=== PATIENT | male | born 1945 | race Two or more races ===

== ENCOUNTER 2020-12-26 19:26 | Inpatient (IN) | payer MEDICARE ==
[~2020-12-26] VITALS: Ht 167.6 cm; Wt 70.3 kg
--- NOTE | 2020-12-26 19:35 | NUR ---
PT C/O SOB FOR 2x HOURS WHILE IN CAR. TOOK INHALER W/ NO RELIEF. PT ALERT AND ORIENTED X3. AMBULATORY HAVING TROUBLE CATCHING BREATHING SATING AT 93% ON ROOM AIR.
[2020-12-26] MEDS ORDERED: ALBUTEROL FS 2.5 MG/3 ML VIAL.NEB NEB ONE (20:00)
[2020-12-26] MEDS ORDERED: IPRATROPIUM NEB FS 0.5 MG/2.5 ML AMPUL.NEB NEB ONE (20:00)
[2020-12-26] MEDS ORDERED: predniSONE 20 MG TABLET PO ONE (20:00)
[2020-12-26] MEDS ORDERED: predniSONE 20 MG TABLET ONE (20:08)
[2020-12-26 20:13] LABS: BASOPHILS # (AUTO) 0.3 K/uL (0.0-0.2); BASOPHILS % (AUTO) 2.2 % (0.0-2.0); EOSINOPHILS % (AUTO) 6.3 % (0.0-6.0); HEMATOCRIT 37 % (39-51); HEMOGLOBIN 10.7 g/dL (13.5-17.5); LYMPHOCYTES # (AUTO) 0.9 K/uL (0.8-4.8); LYMPHOCYTES % (AUTO) 7.4 % (20.0-44.0); MEAN CORPUSCULAR HGB CONC 29 g/dl (31.0-36.0); MEAN CORPUSCULAR VOLUME 73 fL (80-96); MONOCYTES # (AUTO) 0.7 K/uL (0.1-1.30); MONOCYTES % (AUTO) 5.3 % (2.0-12.0); NEUTROPHILS # (AUTO) 10.1 K/uL (1.8-8.9); NEUTROPHILS % (AUTO) 78.8 % (43.0-81.0); PLATELET COUNT (AUTO) 382 K/uL (150-450); RED BLOOD CELL COUNT(AUTO) 5.04 MIL/uL (4.5-6.0); WHITE BLOOD COUNT (AUTO) 12.8 K/uL (4.3-11.0)
[2020-12-26 20:22] LABS: CALCIUM, SERUM 9.1 mg/dL (8.5-10.1); CARBON DIOXIDE 24 mmol/L (21-32); CHLORIDE 106 mmol/L (98-107); CREATININE 1.4 mg/dL (0.6-1.3); GLUCOSE 106 mg/dL (74-106); POTASSIUM 4.5 mmol/L (3.5-5.1); SODIUM SERUM 141 mmol/L (136-145); UREA NITROGEN, BLOOD 32 mg/dL (7-18)
[2020-12-26] MEDS ORDERED: ALBUTEROL FS 2.5 MG/3 ML VIAL.NEB ONE (20:47)
[2020-12-26] MEDS ORDERED: IPRATROPIUM NEB FS 0.5 MG/2.5 ML AMPUL.NEB ONE (20:47)
--- NOTE | 2020-12-26 21:00 | NUR ---
RT @ BEDSIDE FOR BREATHING TREATMENT
--- NOTE | 2020-12-26 21:20 | NUR ---
COVID SWAB RAPID COLLECTED AND SENT TO THE LAB.
--- NOTE | 2020-12-26 21:20 | NUR ---
DR CHIANG ON THE PHONE W/ CONNOR DAWKINS, HOSPITALIST
--- NOTE | 2020-12-26 21:27 | NUR ---
son is at bedside speaking to md.
--- NOTE | 2020-12-26 21:29 | NUR ---
LARISSA SOTO ASKED TO CALL IN CASE OF EMERGENCY [phone]
[2020-12-26] MEDS ORDERED: ENOXAPARIN SODIUM 80 MG/0.8 ML DISP.SYRIN SQ ONE (21:30)
--- NOTE | 2020-12-26 21:47 | NUR ---
PT PLACED ON MONITOR AND LEFT COMFORTABLE ON BED.
[2020-12-26] MEDS ORDERED: CLONIDINE HCL 0.1 MG TABLET ONE (21:49)
[2020-12-26] MEDS ORDERED: ONDANSETRON HCL/PF 4 MG/2 ML VIAL IVP PRN (22:00)
[2020-12-26] MEDS ORDERED: IV NS 0.9% 1,000 ML IV PRN (22:00)
[2020-12-26] MEDS ORDERED: CLONIDINE HCL 0.1 MG TABLET PO ONE (22:00)
[2020-12-26] MEDS ORDERED: ACETAMINOPHEN 325 MG TABLET PO PRN (22:00)
--- NOTE | 2020-12-26 22:02 | NUR ---
CALL LIGHT AND URINAL GIVEN TO PATIENT.
[2020-12-26 22:08] LABS: IRON, SERUM 20 ug/dl (50-175); TOTAL IRON BINDING CAPACITY 473 ug/dl (250-450)
[2020-12-26 22:41] LABS: FERRITIN 15 ng/mL (8-388)
[2020-12-27] MEDS: IPRATROPIUM NEB FS 0.5 MG/2.5 ML AMPUL.NEB NEB SCH ×4 (00:18→19:59)
--- NOTE | 2020-12-27 00:26 | NUR ---
RT @ BEDSIDE FOR BREATHING TREATMENT
--- NOTE | 2020-12-27 03:20 | NUR ---
Room 314- Bed 2
--- NOTE | 2020-12-27 03:38 | NUR ---
report given to NOREEN Barnhart
--- NOTE | 2020-12-27 03:40 | NUR ---
PATIENT BEING TRANSFERRED TO [facility]-2 PER ACLS.
[2020-12-27 04:00] VITALS: BP 146/77
--- NOTE | 2020-12-27 04:00 | NUR ---
RN NOTES Received patient from ER with Dx of NSTEMI alert oriented x4, syriac/arabic speaking, denies pain, SR on tele monitor HR-93, not in distress O2 sat @ 3L saturating 98%, admission instructions provided, call light within reach, siderailsupx2, will continue to monitor
[2020-12-27 04:15] VITALS: BP 141/77
[2020-12-27] MEDS ORDERED: methylPREDNISolone SOD SUCC 40 MG/ML VIAL IV ONE (05:00)
--- NOTE | 2020-12-27 06:31 | NUR ---
RN NOTES Awake, denies pain, not in distress, morning care rendered, call light within reach, siderailsupx2, pt needs attended
[2020-12-27 07:28] LABS: BASOPHILS % (AUTO) 0.1 % (0.0-2.0); HEMATOCRIT 33 % (39-51); HEMOGLOBIN 9.9 g/dL (13.5-17.5); LYMPHOCYTES # (AUTO) 0.7 K/uL (0.8-4.8); MEAN CORPUSCULAR HGB CONC 30 g/dl (31.0-36.0); MEAN CORPUSCULAR VOLUME 72 fL (80-96); MONOCYTES # (AUTO) 0.1 K/uL (0.1-1.30); MONOCYTES % (AUTO) 0.7 % (2.0-12.0); NEUTROPHILS % (AUTO) 90.2 % (43.0-81.0); PLATELET COUNT (AUTO) 350 K/uL (150-450); RED BLOOD CELL COUNT(AUTO) 4.61 MIL/uL (4.5-6.0); WHITE BLOOD COUNT (AUTO) 7.8 K/uL (4.3-11.0)
--- NOTE | 2020-12-27 07:35 | NUR ---
RN OPENING NOTE- PT ALERT ORIENTED TO PERSON PLACE TIME PURPOSE. PT W O2 VIA NC SATURATION AT 97%, TOLERATING WELL. IVF INFUSING - NS AT 75/HR. CXR W PLEURAL EFFUSIONS PRESENT . WILL CONFER W MD REGARDING CONTINUED IVF. SIDE RAILS UP, BED LOCKED, CALL LIGHT CLOSE, DENIES PAIN. MONITOR/ ASSIST
[2020-12-27 08:00] VITALS: BP 139/67
[2020-12-27 08:13] LABS: CALCIUM, SERUM 8.7 mg/dL (8.5-10.1); CARBON DIOXIDE 23 mmol/L (21-32); CHLORIDE 105 mmol/L (98-107); CREATININE 1.4 mg/dL (0.6-1.3); GLUCOSE 164 mg/dL (74-106); MAGNESIUM 2.2 mg/dL (1.8-2.4); PHOSPHORUS 3.3 mg/dL (2.5-4.9); POTASSIUM 4.1 mmol/L (3.5-5.1); SODIUM SERUM 141 mmol/L (136-145); UREA NITROGEN, BLOOD 31 mg/dL (7-18)
[2020-12-27 08:14] LABS: CHOLESTEROL 199 mg/dL (<200); HDL CHOLESTEROL 59 mg/dL (40-60); LDL 129 mg/dL (0-99); TRIGLYCERIDES 62 mg/dL (30-150)
[2020-12-27] MEDS: ATORVASTATIN 40 MG TABLET PO SCH (08:59)
[2020-12-27] MEDS: ASPIRIN 81 MG TAB.CHEW PO SCH (09:00)
[2020-12-27] MEDS: METOPROLOL TARTRATE 25 MG TABLET PO SCH ×2 (09:00→21:12)
[2020-12-27] MEDS ORDERED: HEPARIN SODIUM, PORCINE 5000 UNITS/1 ML VIAL SQ SCH (09:00)
[2020-12-27] MEDS: ENOXAPARIN SODIUM 80 MG/0.8 ML DISP.SYRIN SQ SCH ×2 (09:01→21:13)
[2020-12-27] MEDS ORDERED: NITROGLYCERIN 0.4 MG/TAB BOTTLE SL ONE (10:30)
--- NOTE | 2020-12-27 10:30 | NUR ---
RN NOTE- PT FOR CT ANGIO PER DR MATTSON. CONSENT COMPLETED. PT SENT TO RADIOLOGY. COMPLETED AND RETURNED . AWAITING RESULTS
[2020-12-27] MEDS ORDERED: METOPROLOL TARTRATE INJ 5 MG/5 ML AMPUL ONE (10:31)
[2020-12-27] MEDS ORDERED: CT SWABBABLE VALVE TRANS SET 1 EA INFUS.SET MC ONE (10:31)
[2020-12-27] MEDS ORDERED: IOHEXOL-350 100 ML VIAL IV ONE (10:31)
[2020-12-27] MEDS ORDERED: IV NS 0.9% 250 ML IV ONE (10:32)
[2020-12-27] MEDS: METOPROLOL TARTRATE INJ 5 MG/5 ML AMPUL IVP PRN ×2 (10:37→10:42)
[2020-12-27] MEDS ORDERED: VERAPAMIL HCL IV 5 MG/2 ML VIAL ONE (10:53)
[2020-12-27] MEDS ORDERED: VERAPAMIL HCL IV 5 MG/2 ML VIAL IV PRN (11:00)
[2020-12-27 12:00] VITALS: BP 140/71
[2020-12-27] MEDS ORDERED: GUAI100S11 PO (13:07)
[2020-12-27] MEDS ORDERED: LOSA25TA27 PO (13:07)
[2020-12-27] MEDS ORDERED: ASPI-1420 PO (13:07)
[2020-12-27] MEDS ORDERED: ALBU8.5H8 IH (13:07)
[2020-12-27] MEDS: SOD FERRIC GLUC 125 MG in IV NS 0.9% 100 ML IV SCH (14:03)
[2020-12-27] MEDS ORDERED: ALBUTEROL FS 2.5 MG/0.5 ML VIAL.NEB IH PRN (14:30)
[2020-12-27] MEDS: methylPREDNISolone SOD SUCC 125 MG/2ML VIAL IV SCH ×2 (14:33→21:12)
[2020-12-27] MEDS: LEVOFLOXACIN 500 MG /D5W 100ML 500 MG in PREMIX 1 EA IV SCH (15:13)
[2020-12-27 16:00] VITALS: BP 145/70
--- NOTE | 2020-12-27 16:00 | NUR ---
RN NOTE- UA COLLECTED FOR US CREATININE, AND UA NA
--- NOTE | 2020-12-27 18:36 | NUR ---
RN CLOSING NOTE- PT ALERT ORIENTED TO PERSON PLACE TIME PURPOSE. PT W O2 VIA NC SATURATION AT 97%, TOLERATING WELL. SIDE RAILS UP, BED LOCKED, CALL LIGHT CLOSE, DENIES PAIN. MONITOR/ ASSIST
--- NOTE | 2020-12-27 19:30 | NUR ---
RN OPENING NOTE PATIENT SITTING AT THE EDGE OF THE BED, PATIENT IS A/O X 3. CURRENTLY ON 3 LPM O2 SUPPLEMENT, TOLERATION WELL, PATIENT DOES NOT REPORT DYSPNEA AT THIS TIME. MILD COUGHING PRESENT. PATIENT HAS A RAC 18 G, PATENT AND INTACT, SALINE LOCKED. PATIENT DOES NOT REPORT ANY PAIN AT THIS TIME. SAFETY MEASURES IN PLACE: BED LOCKED AND IN LOWEST POSITION, CALL LIGHT WITHIN REACH, SIDE RAILS UP. WILL MONITOR PATIENT CLOSELY.
[2020-12-27 19:47] LABS: BILIRUBIN,URINE NEGATIVE (NEGATIVE); COLOR,URINE YELLOW (YELLOW); LEUKOCYTE ESTERASE ,URINE NEGATIVE (NEGATIVE); NITRITE, URINE NEGATIVE (NEGATIVE); PH,URINE 5.5 (5.0-8.0); PROTEIN,URINE NEGATIVE (NEGATIVE); UGLUCOSE 100 MG/DL mg/dL (NEGATIVE); UROBILINOGEN,URINE 0.2 EU/dL (0.2)
[2020-12-27 19:54] LABS: CREATININE, URINE 94.6 MG/DL (30.0-125.0)
[2020-12-27 20:00] VITALS: BP 139/64
[2020-12-27 20:00] LABS: BACTERIA,URINE None seen /HPF (None Seen); RBC,URINE 0-2 /HPF (0-2); SQUAMOUS EPITHELIAL CELL,UR 0-2 /HPF (None Seen); WBC,URINE 0-2 /HPF (0-3)
[2020-12-28] VITALS: BP 133/70
[2020-12-28] MEDS: IPRATROPIUM NEB FS 0.5 MG/2.5 ML AMPUL.NEB NEB SCH ×4 (01:55→19:44)
[2020-12-28 04:00] VITALS: BP 138/72
[2020-12-28] MEDS: methylPREDNISolone SOD SUCC 125 MG/2ML VIAL IV SCH ×3 (04:07→20:41)
--- NOTE | 2020-12-28 06:51 | NUR ---
RN CLOSING NOTE PATIENT IN BED AWAKE, PATIENT IS A/O X 3. CURRENTLY ON 3 LPM O2 SUPPLEMENT, TOLERATING WELL, PATIENT REPORTS OCCASIONAL DYSPNEA. STATES THAT BREATHING TREATMENT AND SITTING UP HELPS. MILD COUGHING PRESENT. DOES NOT HAVE ANY PAIN AT THIS TIME. PATIENT HAS A RAC 18 G, PATENT AND INTACT, SALINE LOCKED. TELE MONITOR READS SR 75 BPM. SAFETY MEASURES IMPLEMENTED. ALL NEEDS MET AND ATTENDED. ALL ORDERS CARRIED OUT. WILL ENDORSE TO DAY SHIFT NURSE FOR NELLY.
--- NOTE | 2020-12-28 07:38 | NUR ---
RN OPENING NOTE PT AWAKE IN BED RESTING. ON 3L NC WITH SOB PRESENT, NO RESPIRATORY DISTRESS. MD AWARE. A/O X4 AND [place] SPEAKING. ON DAY HAUL OR FARM CHARTER BUS DRIVER. NO EDEMA PRESENT. SELF AMBULATORY WITH BATHROOM PRIVILEGES. URINAL AT BEDSIDE. NO SKIN BREAKDOWN PRESENT. IV PRESENT ON R AC 18 AND FLUSHES WELL. SALINE LOCKED. LABS AND ORDERS REVIEWED. SAFETY MEASURES IN PLACE. SIDE RAILS RAISED. BED LOWERED. CALL LIGHT WITHIN REACH. WILL CONTINUE TO MONITOR.
[2020-12-28 07:41] LABS: BASOPHILS % (AUTO) 0.1 % (0.0-2.0); HEMATOCRIT 31 % (39-51); HEMOGLOBIN 9.1 g/dL (13.5-17.5); LYMPHOCYTES # (AUTO) 0.9 K/uL (0.8-4.8); LYMPHOCYTES % (AUTO) 3.9 % (20.0-44.0); MEAN CORPUSCULAR HGB CONC 29 g/dl (31.0-36.0); MEAN CORPUSCULAR VOLUME 73 fL (80-96); MONOCYTES # (AUTO) 0.4 K/uL (0.1-1.30); MONOCYTES % (AUTO) 1.7 % (2.0-12.0); NEUTROPHILS # (AUTO) 21.7 K/uL (1.8-8.9); NEUTROPHILS % (AUTO) 94.3 % (43.0-81.0); PLATELET COUNT (AUTO) 346 K/uL (150-450); RED BLOOD CELL COUNT(AUTO) 4.26 MIL/uL (4.5-6.0)
[2020-12-28 08:00] VITALS: BP 134/64
[2020-12-28 08:12] LABS: ALANINE AMINOTRANSFERASE 25 U/L (12-78); ALBUMIN 3.7 g/dL (3.4-5.0); ALKALINE PHOSPHATASE 93 U/L (46-116); ASPARTATE AMINOTRANSFERASE 19 U/L (15-37); BILIRUBIN,TOTAL 0.2 mg/dL (0.2-1.0); CALCIUM, SERUM 8.5 mg/dL (8.5-10.1); CARBON DIOXIDE 24 mmol/L (21-32); CHLORIDE 107 mmol/L (98-107); CREATININE 1.4 mg/dL (0.6-1.3); GLUCOSE 146 mg/dL (74-106); MAGNESIUM 2.5 mg/dL (1.8-2.4); PHOSPHORUS 3.9 mg/dL (2.5-4.9); POTASSIUM 4.5 mmol/L (3.5-5.1); SODIUM SERUM 139 mmol/L (136-145); TOTAL PROTEIN, SERUM 7.9 g/dL (6.4-8.2); UREA NITROGEN, BLOOD 39 mg/dL (7-18)
[2020-12-28] MEDS: ATORVASTATIN 40 MG TABLET PO SCH (08:44)
[2020-12-28] MEDS: VALSARTAN 80 MG TABLET PO SCH (08:44)
[2020-12-28] MEDS: METOPROLOL TARTRATE 25 MG TABLET PO SCH ×2 (08:44→20:41)
[2020-12-28] MEDS: ASPIRIN 81 MG TAB.CHEW PO SCH (08:44)
[2020-12-28] MEDS: ENOXAPARIN SODIUM 40 MG/0.4 ML DISP.SYRIN SQ SCH (08:59)
[2020-12-28] MEDS ORDERED: GUAIFENESIN/CODEINE 10 ML UDC PO PRN (09:00)
[2020-12-28] MEDS: GUAIFENESIN/D-METHORPHAN HB 5 ML UDC PO PRN ×3 (11:10→22:43)
--- NOTE | 2020-12-28 11:15 | NUR ---
RN NOTE' PT REQUESTING FOR ALBUTEROL, MED UNAVAILABLE PER PHARMACY. [facility] OFFERED PRN MED. PT ACCEPTED. NOTIFIED.
[2020-12-28] MEDS ORDERED: ALBUTEROL HALF STRENGTH 1.25 MG/3 ML VIAL.NEB NEB PRN (11:30)
[2020-12-28] MEDS: PANTOPRAZOLE 40 MG TABLET.DR PO SCH (12:50)
[2020-12-28 13:25] LABS: BAND % (MANUAL) 1 % (0.0-5.0); LYMPHOCYTES % (MANUAL) 3 % (16-48); MONOCYTES % (MANUAL) 2 % (0-11.0); NEUTROPHILS % (MANUAL) 94 (42-76)
[2020-12-28] MEDS ORDERED: IPRATROPIUM NEB FS 0.5 MG/2.5 ML AMPUL.NEB NEB SCH (13:30)
[2020-12-28] MEDS: ALBUTEROL HALF STRENGTH 1.25 MG/3 ML VIAL.NEB NEB SCH ×2 (13:50→19:44)
[2020-12-28] MEDS: SOD FERRIC GLUC 125 MG in IV NS 0.9% 100 ML IV SCH (16:01)
[2020-12-28] MEDS: LEVOFLOXACIN 500 MG /D5W 100ML 500 MG in PREMIX 1 EA IV SCH (17:04)
--- NOTE | 2020-12-28 18:27 | NUR ---
RN OPENING NOTE PT AWAKE IN BED RESTING. ON 3L NC WITH SOB PRESENT, NO RESPIRATORY DISTRESS. MD AWARE. A/O X4 AND ALBANIAN SPEAKING. NO BUSINESS INVESTOR PRESENT. NO EDEMA PRESENT. SELF AMBULATORY WITH BATHROOM PRIVILEGES. URINAL AT BEDSIDE. NO SKIN BREAKDOWN PRESENT. IV PRESENT ON R AC 18 AND FLUSHES WELL. SALINE LOCKED. LABS AND ORDERS REVIEWED. SAFETY MEASURES IN PLACE. SIDE RAILS RAISED. BED LOWERED. CALL LIGHT WITHIN REACH. WILL GIVE REPORT TO NIGHT NURSE FOR NELLY.
--- NOTE | 2020-12-28 19:18 | NUR ---
RN OPENING NOTES PT AWAKE IN BED RESTING. ON 3L NC WITH SOB PRESENT, NO RESPIRATORY DISTRESS. A/O X4 AND PRYDEINIG/ CYPRIOT SPEAKING. NO ANDROID IOS DEVELOPER PRESENT. NO EDEMA PRESENT. SELF AMBULATORY WITH BATHROOM PRIVILEGES. URINAL AT BEDSIDE. NO SKIN BREAKDOWN PRESENT. IV PRESENT ON R AC 18 AND FLUSHES WELL. SALINE LOCKED. SAFETY MEASURES IN PLACE. SIDE RAILS RAISED. BED LOWERED. CALL LIGHT WITHIN REACH. SON AT BEDSIDE AT THIS TIME. WILL CONTINUE TO MONITOR.
[2020-12-28 20:00] VITALS: BP 138/62
[2020-12-28] MEDS ORDERED: IV NS 0.9% 1,000 ML IV ONE (21:30)
[2020-12-29] MEDS: ALBUTEROL HALF STRENGTH 1.25 MG/3 ML VIAL.NEB NEB SCH ×4 (01:21→19:54)
[2020-12-29] MEDS: IPRATROPIUM NEB FS 0.5 MG/2.5 ML AMPUL.NEB NEB SCH ×4 (01:22→19:54)
[2020-12-29] MEDS: methylPREDNISolone SOD SUCC 125 MG/2ML VIAL IV SCH ×2 (04:32→12:13)
[2020-12-29 06:33] LABS: HEMATOCRIT 29 % (39-51); HEMOGLOBIN 8.7 g/dL (13.5-17.5); LYMPHOCYTES # (AUTO) 0.5 K/uL (0.8-4.8); LYMPHOCYTES % (AUTO) 2.6 % (20.0-44.0); MEAN CORPUSCULAR HGB CONC 30 g/dl (31.0-36.0); MEAN CORPUSCULAR VOLUME 73 fL (80-96); MONOCYTES # (AUTO) 0.3 K/uL (0.1-1.30); MONOCYTES % (AUTO) 1.6 % (2.0-12.0); NEUTROPHILS # (AUTO) 19.6 K/uL (1.8-8.9); NEUTROPHILS % (AUTO) 95.8 % (43.0-81.0); PLATELET COUNT (AUTO) 308 K/uL (150-450); RED BLOOD CELL COUNT(AUTO) 4.03 MIL/uL (4.5-6.0); WHITE BLOOD COUNT (AUTO) 20.5 K/uL (4.3-11.0)
--- NOTE | 2020-12-29 06:53 | NUR ---
RN NOTES PT AWAKE IN BED RESTING. ON 3L NC WITH SOB PRESENT, NO RESPIRATORY DISTRESS. A/O X4 AND SUDANESE/ ARMENIAN SPEAKING. NO TEACHING ARTIST PRESENT. NO EDEMA PRESENT. SELF AMBULATORY WITH BATHROOM PRIVILEGES. URINAL AT BEDSIDE. NO SKIN BREAKDOWN PRESENT. IV PRESENT ON R AC 20 AND FLUSHES WELL RUNNING NS @ 75ML/HR. SAFETY MEASURES IN PLACE. SIDE RAILS RAISED. BED LOWERED. CALL LIGHT WITHIN REACH. WILL ENDORSE TO DAY SHIFT.
[2020-12-29 06:54] LABS: CALCIUM, SERUM 8.1 mg/dL (8.5-10.1); CARBON DIOXIDE 21 mmol/L (21-32); CHLORIDE 108 mmol/L (98-107); CREATININE 1.5 mg/dL (0.6-1.3); GLUCOSE 147 mg/dL (74-106); MAGNESIUM 2.6 mg/dL (1.8-2.4); POTASSIUM 4.8 mmol/L (3.5-5.1); SODIUM SERUM 139 mmol/L (136-145); UREA NITROGEN, BLOOD 43 mg/dL (7-18)
--- NOTE | 2020-12-29 07:30 | NUR ---
MS RN OPENING NOTES RECEIVED PT AWAKE ON BED AND A/O X4. ON O2 AT 3LPM VIA NASAL CANNULA, TOLERATING WELL. NO SOB NOTED. NOT IN DISTRESS. NO CONTROL CLERK HEAD PRESENT. NO EDEMA PRESENT. WITH IV IV ACCESS AT RIGHT AC G18, SALINE LOCKED, PATENT AND INTACT. SAFETY MEASURES IN PLACE. CALL LIGHT WITHIN REACH. BED ON LOWEST AND LOCKED POSITION, SIDE RAILS UP X2. WILL CONTINUE TO MONITOR.
[2020-12-29 08:00] VITALS: BP 122/68
[2020-12-29] MEDS: ATORVASTATIN 40 MG TABLET PO SCH (08:31)
[2020-12-29] MEDS: GUAIFENESIN/D-METHORPHAN HB 5 ML UDC PO PRN ×2 (08:31→17:05)
[2020-12-29] MEDS: ASPIRIN 81 MG TAB.CHEW PO SCH (08:31)
[2020-12-29] MEDS: VALSARTAN 80 MG TABLET PO SCH (08:32)
[2020-12-29] MEDS: PANTOPRAZOLE 40 MG TABLET.DR PO SCH ×2 (08:32→17:02)
[2020-12-29] MEDS: METOPROLOL TARTRATE 25 MG TABLET PO SCH ×2 (08:33→20:53)
[2020-12-29] MEDS: ENOXAPARIN SODIUM 40 MG/0.4 ML DISP.SYRIN SQ SCH (08:38)
[2020-12-29] MEDS: SOD FERRIC GLUC 125 MG in IV NS 0.9% 100 ML IV SCH (13:57)
[2020-12-29] MEDS: LEVOFLOXACIN (250MG) 250 MG TABLET PO SCH (15:05)
[2020-12-29 16:00] VITALS: BP 134/67
--- NOTE | 2020-12-29 18:25 | NUR ---
MS RN CLOSING NOTES PT RESTING ON BED AND A/O X4. ON ROOM AIR TOLERATING WELL. NO SOB NOTED. NOT IN DISTRESS. WITH NO COMPLAINTS OF PAIN AT THIS TIME. WITH IV ACCESS AT RIGHT HAND G22, SALINE LOCKED, PATENT AND INTACT. SAFETY MEASURES IN PLACE. CALL LIGHT WITHIN REACH. BED ON LOWEST AND LOCKED POSITION, SIDE RAILS UP X2. WILL ENDORSE TO NEXT SHIFT FOR NELLY.
--- NOTE | 2020-12-29 19:00 | NUR ---
RECEIVED PATIENT SITTING ON THE EDGE OF THE BED ALERT AND ORIENTATED X4 SMILING VERBALIZING HIS NEEDS NO CHESTPAIN NO NOTED SOB
[2020-12-29 20:00] VITALS: BP 138/65
[2020-12-30] MEDS: ALBUTEROL HALF STRENGTH 1.25 MG/3 ML VIAL.NEB NEB SCH ×3 (01:42→12:55)
[2020-12-30] MEDS: IPRATROPIUM NEB FS 0.5 MG/2.5 ML AMPUL.NEB NEB SCH ×3 (01:42→12:55)
--- NOTE | 2020-12-30 04:58 | NUR ---
CLLOSING NOTES ; RESP TX EFFECTIVE SLEPT THUR THE NIGHT NO SOB ROOM AIR A GOD NIGHT
--- NOTE | 2020-12-30 07:25 | NUR ---
pt. is awake and alert received on room air with saturation of 95%, no sob noted. Addendum: 12/30/20 at 0726 by SYLWIA GRANT RT Amended: Links added.
--- NOTE | 2020-12-30 07:37 | NUR ---
RN OPENING NOTE RECEIVED PATIENT IN BED. A/O X4. VERBALIZING SOB, PLACED ON 02 AT 2 LPM VIA FOR SUPPORT. IN NO APPARENT DISTRESS. DENIES ANY PAIN AT THIS TIME. IV ACCESS ON R HAND #20 G, INTACT AND PATENT. SAFETY MEASURES MAINTAINED. BED IN LOWEST POSITION, BRAKES LOCKED. SIDE RAILS UP X2. CALL LIGHT WITHIN REACH. WILL CONTINUE PLAN OF CARE.
[2020-12-30 07:44] LABS: BASOPHILS % (AUTO) 0.1 % (0.0-2.0); HEMATOCRIT 28 % (39-51); HEMOGLOBIN 8.5 g/dL (13.5-17.5); LYMPHOCYTES % (AUTO) 5.9 % (20.0-44.0); MEAN CORPUSCULAR HGB CONC 30 g/dl (31.0-36.0); MEAN CORPUSCULAR VOLUME 72 fL (80-96); MONOCYTES # (AUTO) 1.2 K/uL (0.1-1.30); MONOCYTES % (AUTO) 6.7 % (2.0-12.0); NEUTROPHILS # (AUTO) 15.4 K/uL (1.8-8.9); NEUTROPHILS % (AUTO) 87.3 % (43.0-81.0); PLATELET COUNT (AUTO) 290 K/uL (150-450); RED BLOOD CELL COUNT(AUTO) 3.91 MIL/uL (4.5-6.0); WHITE BLOOD COUNT (AUTO) 17.7 K/uL (4.3-11.0)
[2020-12-30 08:00] VITALS: BP 145/81
[2020-12-30 08:08] LABS: CALCIUM, SERUM 8.1 mg/dL (8.5-10.1); CARBON DIOXIDE 24 mmol/L (21-32); CHLORIDE 109 mmol/L (98-107); CREATININE 1.4 mg/dL (0.6-1.3); GLUCOSE 111 mg/dL (74-106); POTASSIUM 4.5 mmol/L (3.5-5.1); SODIUM SERUM 140 mmol/L (136-145); UREA NITROGEN, BLOOD 37 mg/dL (7-18)
[2020-12-30] MEDS: PANTOPRAZOLE 40 MG TABLET.DR PO SCH ×2 (08:25→16:03)
[2020-12-30] MEDS: GUAIFENESIN/D-METHORPHAN HB 5 ML UDC PO PRN (08:25)
[2020-12-30] MEDS: ATORVASTATIN 40 MG TABLET PO SCH (08:26)
[2020-12-30] MEDS: METOPROLOL TARTRATE 25 MG TABLET PO SCH (08:26)
[2020-12-30] MEDS: ASPIRIN 81 MG TAB.CHEW PO SCH (08:26)
[2020-12-30] MEDS: VALSARTAN 80 MG TABLET PO SCH (08:26)
[2020-12-30] MEDS: methylPREDNISolone SOD SUCC 40 MG/ML VIAL IV SCH ×2 (08:27→16:03)
[2020-12-30] MEDS: ENOXAPARIN SODIUM 40 MG/0.4 ML DISP.SYRIN SQ SCH (08:30)
[2020-12-30] MEDS: SOD FERRIC GLUC 125 MG in IV NS 0.9% 100 ML IV SCH (14:15)
[2020-12-30] MEDS ORDERED: BUDE10.2 INH (14:52)
[2020-12-30] MEDS ORDERED: Valsartan 80MG PO (14:58)
[2020-12-30] MEDS ORDERED: METO25TA20 PO (14:58)
[2020-12-30] MEDS ORDERED: PANT40TA2 PO (14:58)
[2020-12-30] MEDS ORDERED: METH4TAB17 PO (14:58)
[2020-12-30] MEDS ORDERED: Levofloxacin (250MG) PO (14:58)
[2020-12-30] MEDS ORDERED: ATOR40TA PO (14:58)
[2020-12-30] MEDS ORDERED: ASPI-1169 PO (14:58)
[2020-12-30 16:00] VITALS: BP 177/72
[2020-12-30] MEDS: LEVOFLOXACIN (250MG) 250 MG TABLET PO SCH (16:03)
--- NOTE | 2020-12-30 18:00 | NUR ---
DISCHARGE NOTE PATIENT WAS DISCHARGED TO HOME. WHEELED DOWN BY MARTA PLATT. HEALTH TEACHING AND DISCHARGE INSTRUCTIONS GIVEN. PT VERBALIZED UNDERSTANDING. REFUSED PHOTO DOCUMENTATION. REMOVED IV ACCESS AND ID [id number]. ALL FORMS SIGNED.
== END 2020-12-30 18:00 | disposition home or self-care (01) | DRG 189 ==
LOC: ER 19:26 → TELE 12-27 03:24 → MED 12-28 09:47
PROVIDERS: ADMIT Nurse Practitioner Acute Care; ATTEND Nurse Practitioner Acute Care
DX: J96.01 Acute respiratory failure with hypoxia (principal); I21.A1 Myocardial infarction type 2; N17.0 Acute kidney failure with tubular necrosis; J44.1 Chronic obstructive pulmonary disease with (acute) exacerbation; I16.0 Hypertensive urgency; Z20.822 Contact with and (suspected) exposure to COVID-19; I70.0 Atherosclerosis of aorta; Z98.890 Other specified postprocedural states; D50.9 Iron deficiency anemia, unspecified; D72.829 Elevated white blood cell count, unspecified; Z87.891 Personal history of nicotine dependence; I12.9 Hypertensive chronic kidney disease with stage 1 through stage 4 chronic kidney disease, or unspecified chronic kidney disease; N18.9 Chronic kidney disease, unspecified; K44.9 Diaphragmatic hernia without obstruction or gangrene
CPT/HCPCS: 36415; 71045-TC; 75574; 76770-TC; 80048-TC; 80053-TC; 80061-TC; 81001; 82378; 82570-TC; 82728-TC; 83540-TC; 83735-TC; 83880; 84100-TC; 84300-TC; 84484-TC; 85025-TC; 87081-TC; 93307-TC; 94799-TC; A4216; C9803; G0378; J1650; J1956; J2405; J2916; J2920; J2930; J3490; J7030; J7050; Q9967

== ENCOUNTER 2022-04-02 19:16 | Inpatient (IN) | payer MEDICARE ==
[~2022-04-02] VITALS: Ht 167.6 cm; Wt 83.9 kg
[~2022-04-02 19:16] MED LIST: ALBU8.5H8 IH; ASPI-1169 PO; ASPI-1420 PO; ATOR40TA PO; BUDE10.2 INH; GUAI100S11 PO; LOSA25TA27 PO; Levofloxacin (250MG) PO; METH4TAB17 PO; METO25TA20 PO; PANT40TA2 PO; Valsartan 80MG PO
--- NOTE | 2022-04-02 19:33 | NUR ---
BIBSELF FROM HOME C/O CP UPON EXERTION. -N/V -DIZZINESS. PT A/OX4. TOLERATING R/A WELL WITH NO SOB. CHANGED IN GOWN. CONNECTED PT TO POX AND MONITOR. SAFETY MEASURES IN PLACE.
--- NOTE | 2022-04-02 19:36 | NUR ---
EMT AT PT'S BEDSIDE
--- NOTE | 2022-04-02 19:56 | NUR ---
CEMENT [facility] [employer] AT BEDSIDE
[2022-04-02 20:22] LABS: BASOPHILS # (AUTO) 0.1 K/uL (0.0-0.2); BASOPHILS % (AUTO) 1.4 % (0.0-2.0); EOSINOPHILS % (AUTO) 2.3 % (0.0-6.0); LYMPHOCYTES # (AUTO) 1.8 K/uL (0.8-4.8); LYMPHOCYTES % (AUTO) 23.7 % (20.0-44.0); MEAN CORPUSCULAR HGB CONC 27 g/dl (31.0-36.0); MEAN CORPUSCULAR VOLUME 59 fL (80-96); MONOCYTES # (AUTO) 0.9 K/uL (0.1-1.30); MONOCYTES % (AUTO) 12.4 % (2.0-12.0); NEUTROPHILS # (AUTO) 4.5 K/uL (1.8-8.9); NEUTROPHILS % (AUTO) 60.2 % (43.0-81.0); PLATELET COUNT (AUTO) 291 K/uL (150-450); WHITE BLOOD COUNT (AUTO) 7.5 K/uL (4.3-11.0)
[2022-04-02 20:35] LABS: HEMATOCRIT 19 % (39-51)
--- NOTE | 2022-04-02 20:35 | NUR ---
CRITICAL LABS HGB 5.0 HCT 19
[2022-04-02 20:37] LABS: CALCIUM, SERUM 8.2 mg/dL (8.5-10.1); CARBON DIOXIDE 24 mmol/L (21-32); CHLORIDE 109 mmol/L (98-107); CREATININE 1.2 mg/dL (0.6-1.3); GLUCOSE 114 mg/dL (74-106); POTASSIUM 3.6 mmol/L (3.5-5.1); SODIUM SERUM 143 mmol/L (136-145); UREA NITROGEN, BLOOD 18 mg/dL (7-18)
--- NOTE | 2022-04-02 20:45 | NUR ---
ACETONE BUTTON PASTER AT PT'S BEDSIDE
--- NOTE | 2022-04-02 20:47 | NUR ---
COVID ANTIGEN SWAB COLLECTED AND SENT TO LAB
--- NOTE | 2022-04-02 20:49 | NUR ---
CRITICAL LAB TROPONIN 963
[2022-04-02 20:53] LABS: ALANINE AMINOTRANSFERASE 14 U/L (12-78); ALBUMIN 3.5 g/dL (3.4-5.0); ALKALINE PHOSPHATASE 85 U/L (46-116); ASPARTATE AMINOTRANSFERASE 13 U/L (15-37); BILIRUBIN,DIRECT 0.1 mg/dL (0.0-0.2); BILIRUBIN,TOTAL 0.5 mg/dL (0.2-1.0); TOTAL PROTEIN, SERUM 7.1 g/dL (6.4-8.2)
--- NOTE | 2022-04-02 20:53 | NUR ---
CONSENT FOR BLOOD TRANSFUSION SIGNED BY THE PATIENT.
--- NOTE | 2022-04-02 21:47 | NUR ---
epic panel paged
--- NOTE | 2022-04-02 21:56 | NUR ---
CRITICAL LAB TROPONIN 1206
[2022-04-02] MEDS ORDERED: FUROSEMIDE 40 MG/4 ML VIAL IV ONE (22:00)
[2022-04-02] MEDS ORDERED: ENOXAPARIN SODIUM 60 MG/0.6 ML DISP.SYRIN SQ ONE (22:00)
[2022-04-02] MEDS ORDERED: ENOXAPARIN SODIUM 80 MG/0.8 ML DISP.SYRIN SQ STA (22:02)
[2022-04-02] MEDS ORDERED: FUROSEMIDE 40 MG/4 ML VIAL ONE (22:03)
[2022-04-02] MEDS ORDERED: ENOXAPARIN SODIUM 80 MG/0.8 ML DISP.SYRIN SQ ONE (22:03)
--- NOTE | 2022-04-02 22:12 | NUR ---
REPORT GIVEN TO ABDIFATAH RN ROOM 324-2 FOR NELLY
--- NOTE | 2022-04-02 22:24 | NUR ---
PT TRANSFERRED TO 324-1 VIA ACLS PROTOCOL. VSS. ALL BELONGINGS WITH PT.
[2022-04-02 22:45] VITALS: BP 157/80
--- NOTE | 2022-04-02 22:45 | NUR ---
GREEN CHAIN MARKERDENTAL PATIENT COORDINATOR NOTES - RECEIVED PATIENT FROM ED VIA [facility] AT 2233 UNDER THE CARE OF DENNIS PARSONS NP WITH DX OF SEVERE ANEMIA AND NSTEMI. PATIENT IS A/O X4, USES A RIGHT ARM CRUTCH TO AMBULATE. BREATHING EVEN AND NON-LABORED ON ROOM AIR. DENIES PAIN AT THIS TIME. NOT IN APPARENT DISTRESS. HAS LEFT ANTECUBITAL IV ACCESS #20G AND SALINE LOCKED. NO S/S OF INFILTRATION NOTED. NO OPEN WOUND UPON SKIN ASSESSMENT, MID-ABDOMINAL SURGICAL SCAR NOTED. ALL BELONGINGS ACCOUNTED FOR. ORIENTED PATIENT TO UNIT AND STAFF. SAFETY PRECAUTIONS IN PLACE: BED LOCKED AND IN LOWEST POSITION, SIDE RAILS UP X2, CALL LIGHT WITHIN REACH. WILL CONTINUE PLAN OF CARE.
[2022-04-02 22:48] LABS: EOSINOPHILS % (MANUAL) 1 % (0-4); LYMPHOCYTES % (MANUAL) 24 % (16-48); MONOCYTES % (MANUAL) 6 % (0-11.0); NEUTROPHILS % (MANUAL) 69 (42-76)
[2022-04-02] MEDS ORDERED: MAGNESIUM HYDROXIDE 30 ML UDC PO PRN (23:30)
[2022-04-02] MEDS ORDERED: ZOLPIDEM TARTRATE 5 MG TABLET PO PRN (23:30)
[2022-04-02] MEDS ORDERED: MAG HYDROX/AL HYDROX/SIMETH 30 ML UDC PO PRN (23:30)
[2022-04-02] MEDS ORDERED: ACETAMINOPHEN 325 MG TABLET PO PRN (23:30)
[2022-04-02] MEDS ORDERED: ONDANSETRON HCL/PF 4 MG/2 ML VIAL IVP PRN (23:30)
[2022-04-02] MEDS ORDERED: Z GUARD REMEDY 4 OZ OINT TP PRN (23:30)
[2022-04-02] MEDS ORDERED: MORPHINE SULFATE INJ 4 MG/ML DISP.SYRIN IV PRN (23:45)
[2022-04-02 23:57] VITALS: BP 149/75
[2022-04-03] VITALS (19 sets, daily range): BP systolic 126–175; BP diastolic 59–85
[2022-04-03 00:01] LABS: IRON, SERUM 9 ug/dl (50-175); TOTAL IRON BINDING CAPACITY 480 ug/dl (250-450)
--- NOTE | 2022-04-03 00:05 | NUR ---
BLOOD TRANSFUSION STARTED, WILL MONITOR PATIENT FOR ANY ASE.
[2022-04-03 00:10] LABS: FERRITIN 3 ng/mL (8-388)
[2022-04-03 00:11] LABS: HEMOGLOBIN 5.5 g/dL (13.5-17.5)
[2022-04-03] MEDS: ALBUTEROL FS 2.5 MG/3 ML VIAL.NEB NEB SCH ×4 (01:30→20:55)
--- NOTE | 2022-04-03 03:55 | NUR ---
RT was just informed of neb tx due for this pt as he was transferred up at 2230.
--- NOTE | 2022-04-03 06:28 | NUR ---
NOTIFIED HOSPITALIST THAT PATIENT'S BP HAS BEEN IN THE 160-170 AND THIS IS THE NORMAL BP FOR THE PATIENT. ORDERED TO CHANGE DIET TO NPO EXCEPT MEDS SO HE CAN TAKE HIS VALSARTAN THIS MORNING. NOTED AND CARRIED OUT.
--- NOTE | 2022-04-03 07:04 | NUR ---
ENTRY LEVEL ACCOUNT EXECUTIVE CLOSING NOTES - PATIENT LAYING IN BED AWAKE, ABLE TO VERBALIZE NEEDS. NO ACUTE EVENTS THROUGHOUT THE NIGHT. AFEBRILE. ON TELE MONITOR READING SINUS BRADYCARDIA AT 50BPM. LEFT ANTECUBITAL IV ACCESS #20G INTACT, PATENT AND FLUSHING. ALL DUE MEDS GIVEN AND NEEDS ATTENDED. SAFETY PRECAUTIONS MAINTAINED. WILL ENDORSE TO NEXT SHIFT FOR NELLY.
--- NOTE | 2022-04-03 08:00 | NUR ---
GENERAL UTILITY WORKER OPENING NOTES PATIENT LAYING IN BED AWAKE, ABLE TO VERBALIZE NEEDS. NO SOB AND DIFFICULTY BREATHING, NOT IN DISTRESSED NOTED. ON TELE MONITOR READING SINUS BRADYCARDIA AT 56PM. LEFT ANTECUBITAL IV ACCESS #20G INTACT AND PATENT. PATIENT IS IN NPO. WILL CONTINUE PLAN OF CARE.
[2022-04-03] MEDS: BUDESONIDE RESPULE INH 0.5 MG/2 ML AMPUL.NEB NEB SCH ×2 (08:04→15:00)
[2022-04-03 08:06] LABS: BASOPHILS # (AUTO) 0.1 K/uL (0.0-0.2); BASOPHILS % (AUTO) 1.3 % (0.0-2.0); EOSINOPHILS % (AUTO) 3.2 % (0.0-6.0); HEMATOCRIT 29 % (39-51); HEMOGLOBIN 8.5 g/dL (13.5-17.5); LYMPHOCYTES % (AUTO) 28.1 % (20.0-44.0); MEAN CORPUSCULAR HGB CONC 29 g/dl (31.0-36.0); MEAN CORPUSCULAR VOLUME 67 fL (80-96); MONOCYTES # (AUTO) 1.1 K/uL (0.1-1.30); MONOCYTES % (AUTO) 14.9 % (2.0-12.0); NEUTROPHILS # (AUTO) 3.8 K/uL (1.8-8.9); NEUTROPHILS % (AUTO) 52.5 % (43.0-81.0); PLATELET COUNT (AUTO) 268 K/uL (150-450); RED BLOOD CELL COUNT(AUTO) 4.31 MIL/uL (4.5-6.0); WHITE BLOOD COUNT (AUTO) 7.3 K/uL (4.3-11.0)
[2022-04-03 08:26] LABS: ALANINE AMINOTRANSFERASE 11 U/L (12-78); ALBUMIN 3.5 g/dL (3.4-5.0); ALKALINE PHOSPHATASE 84 U/L (46-116); ASPARTATE AMINOTRANSFERASE 14 U/L (15-37); BILIRUBIN,DIRECT 0.3 mg/dL (0.0-0.2); BILIRUBIN,TOTAL 2.6 mg/dL (0.2-1.0); CALCIUM, SERUM 8.4 mg/dL (8.5-10.1); CARBON DIOXIDE 27 mmol/L (21-32); CHLORIDE 107 mmol/L (98-107); CREATININE 1.2 mg/dL (0.6-1.3); GLUCOSE 104 mg/dL (74-106); PHOSPHORUS 3.5 mg/dL (2.5-4.9); POTASSIUM 3.7 mmol/L (3.5-5.1); SODIUM SERUM 142 mmol/L (136-145); TOTAL PROTEIN, SERUM 7.1 g/dL (6.4-8.2); UREA NITROGEN, BLOOD 16 mg/dL (7-18)
[2022-04-03] MEDS: ATORVASTATIN 40 MG TABLET PO SCH (08:32)
[2022-04-03] MEDS: VALSARTAN 80 MG TABLET PO SCH (08:33)
[2022-04-03] MEDS: PANTOPRAZOLE 40 MG VIAL IV SCH ×2 (08:33→17:16)
[2022-04-03] MEDS: ASPIRIN 81 MG TAB.CHEW PO SCH (08:33)
[2022-04-03 08:39] LABS: CHOLESTEROL 136 mg/dL (<200); HDL CHOLESTEROL 58 mg/dL (40-60); LDL 73 mg/dL (0-99); TRIGLYCERIDES 70 mg/dL (30-150)
[2022-04-03] MEDS ORDERED: Medication Not On Formulary EA (Budesonide/Formoterol Fumarate (Symbicort 160-4.5 Mcg In INH SCH (09:00)
[2022-04-03 13:12] LABS: EOSINOPHILS % (MANUAL) 1 % (0-4); LYMPHOCYTES % (MANUAL) 29 % (16-48); MONOCYTES % (MANUAL) 12 % (0-11.0); NEUTROPHILS % (MANUAL) 58 (42-76)
[2022-04-03] MEDS: SOD FERRIC GLUC 125 MG in IV NS 0.9% 100 ML IV SCH (14:37)
--- NOTE | 2022-04-03 18:47 | NUR ---
324-2 FINISHED STOCK INSPECTOR CLOSING NOTES PATIENT SITTING ON BED, AWAKE A/OX4R ABLE TO VERBALIZE NEEDS. NOT IN DISTRESS NOTED. ON TELE MONITOR READING SINUS RHYTHM. LEFT ANTECUBITAL IV ACCESS #20G INTACT, PATENT AND FLUSHING WELL. ALL DUE MEDS GIVEN AND NEEDS ATTENDED. SAFETY PRECAUTIONS MAINTAINED, BED LOCKED AND ON LOWEST POSITION, CALL LIGHT WITHIN REACH. WILL ENDORSE TO NEXT SHIFT FOR CONTINUITY OF CARE.
--- NOTE | 2022-04-03 19:29 | NUR ---
AIRCRAFT TECHNICIAN CLOSING NOTES RECEIVED PATIENT IN BED AWAKE A/OX4,ABLE TO VERBALIZE NEEDS.MARCIO WELL ON RM AIR SATTING 98%,NO SIGN SOB/DISTRESS NOTED,NO COMPLAIN OF PAIN/DISCOMFORT AT TIME, LAC IV ACCESS #20G INTACT, PATENT AND FLUSHING WELL. SAFETY PRECAUTIONS MAINTAINED, BED LOCKED AND ON LOWEST POSITION, CALL LIGHT WITHIN REACH. WILL CONTINUE TO MONITOR.
[2022-04-03 23:29] LABS: HEMOGLOBIN 8.4 g/dL (13.5-17.5)
[2022-04-04] VITALS: BP 154/98
[2022-04-04] MEDS: ALBUTEROL FS 2.5 MG/3 ML VIAL.NEB NEB SCH ×4 (02:31→21:36)
[2022-04-04 04:00] VITALS: BP 157/73
[2022-04-04 05:59] LABS: BASOPHILS # (AUTO) 0.1 K/uL (0.0-0.2); BASOPHILS % (AUTO) 1.1 % (0.0-2.0); EOSINOPHILS % (AUTO) 2.8 % (0.0-6.0); HEMATOCRIT 27 % (39-51); HEMOGLOBIN 7.9 g/dL (13.5-17.5); LYMPHOCYTES # (AUTO) 1.4 K/uL (0.8-4.8); LYMPHOCYTES % (AUTO) 20.6 % (20.0-44.0); MEAN CORPUSCULAR HGB CONC 30 g/dl (31.0-36.0); MEAN CORPUSCULAR VOLUME 66 fL (80-96); MONOCYTES % (AUTO) 14.5 % (2.0-12.0); PLATELET COUNT (AUTO) 257 K/uL (150-450); RED BLOOD CELL COUNT(AUTO) 4.01 MIL/uL (4.5-6.0); WHITE BLOOD COUNT (AUTO) 6.6 K/uL (4.3-11.0)
--- NOTE | 2022-04-04 06:20 | NUR ---
COUNTY TREASURER CLOSING NOTES; PATIENT IN BED AWAKE A/OX4,ABLE TO VERBALIZE NEEDS.MARCIO WELL ON RM AIR SATTING 99%,NO SIGN SOB/DISTRESS NOTED,NO COMPLAIN OF PAIN/DISCOMFORT DURING SHIFT,DUE MEDS GIVEN ORDER,ALL NEEDS ATTENDED,LAC IV ACCESS #20G SL INTACT AND PATENT, SAFETY PRECAUTIONS MAINTAINED, BED LOCKED AND ON LOWEST POSITION, CALL LIGHT WITHIN REACH. WILL ENDORSED TO NEXT SHIFT.
[2022-04-04 06:29] LABS: ALANINE AMINOTRANSFERASE 10 U/L (12-78); ALBUMIN 3.2 g/dL (3.4-5.0); ALKALINE PHOSPHATASE 80 U/L (46-116); ASPARTATE AMINOTRANSFERASE 11 U/L (15-37); BILIRUBIN,DIRECT 0.3 mg/dL (0.0-0.2); BILIRUBIN,TOTAL 1.3 mg/dL (0.2-1.0); CALCIUM, SERUM 8.5 mg/dL (8.5-10.1); CARBON DIOXIDE 26 mmol/L (21-32); CHLORIDE 108 mmol/L (98-107); CREATININE 1.2 mg/dL (0.6-1.3); GLUCOSE 102 mg/dL (74-106); MAGNESIUM 1.9 mg/dL (1.8-2.4); PHOSPHORUS 3.1 mg/dL (2.5-4.9); POTASSIUM 3.7 mmol/L (3.5-5.1); SODIUM SERUM 142 mmol/L (136-145); TOTAL PROTEIN, SERUM 6.6 g/dL (6.4-8.2); UREA NITROGEN, BLOOD 11 mg/dL (7-18)
[2022-04-04] MEDS: BUDESONIDE RESPULE INH 0.5 MG/2 ML AMPUL.NEB NEB SCH ×2 (07:23→16:23)
[2022-04-04 07:53] LABS: OCCULT BLOOD STOOL POSITIVE (NEGATIVE)
[2022-04-04 08:00] VITALS: BP 158/72
--- NOTE | 2022-04-04 08:00 | NUR ---
BLUE LEATHER SORTER OPENING NOTES PATIENT LAYING IN BED AWAKE A/O X4, ABLE TO VERBALIZE NEEDS. NO SHORTNESS OF BREATH AND DIFFICULTY BREATHING, NOT IN DISTRESSED NOTED. PATIENT CLAIMS CHEST PAIN UPON EXERTION. ON TELE MONITOR READING SINUS BRADYCARDIA AT 68PM. LEFT ANTECUBITAL IV ACCESS #20G INTACT AND PATENT. WILL CONTINUE PLAN OF CARE.
[2022-04-04] MEDS: ATORVASTATIN 40 MG TABLET PO SCH (09:05)
[2022-04-04] MEDS: ASPIRIN 81 MG TAB.CHEW PO SCH (09:05)
[2022-04-04] MEDS: VALSARTAN 80 MG TABLET PO SCH (09:06)
[2022-04-04] MEDS: PANTOPRAZOLE 40 MG VIAL IV SCH ×2 (09:06→16:49)
[2022-04-04 12:00] VITALS: BP 150/69
[2022-04-04] MEDS: METOPROLOL TARTRATE 50 MG TABLET PO SCH ×3 (12:18→23:45)
[2022-04-04] MEDS ORDERED: IOHEXOL-350 100 ML VIAL IV ONE (12:49)
[2022-04-04] MEDS ORDERED: IV NS 0.9% 250 ML IV ONE (12:49)
[2022-04-04] MEDS ORDERED: CT SWABBABLE VALVE TRANS SET 1 EA INFUS.SET MC ONE (12:49)
--- NOTE | 2022-04-04 13:02 | NUR ---
SORT LINE WORKER NOTE PATIENT FOR CTCA ORDERED.
--- NOTE | 2022-04-04 13:07 | NUR ---
RN NOTES PT RECEIVED IN RADIOLOGY DEPARTMENT , PT IS A/Ox4, ON MONITOR SR HR IN 60'S , VSS STABLE, PT DENIES ANY CHEST PAIN, AND DISCOMFORT, CONTINUE WITH CTA PER ORDER .
--- NOTE | 2022-04-04 13:25 | NUR ---
RN NOTES CTA DONE, PT TOLERATED WELL, NO METOPROLOL GIVEN , HR IN MISSAEL 50'S, AND LOW 60'S BEFORE CTA. VSS STABLE, PT BACK TO THE ROOM IN STABLE CONDITION.
[2022-04-04] MEDS: SOD FERRIC GLUC 125 MG in IV NS 0.9% 100 ML IV SCH (14:06)
[2022-04-04 16:00] VITALS: BP 136/74
--- NOTE | 2022-04-04 18:49 | NUR ---
SPRING MANUFACTURING SET UP TECHNICIAN CLOSING NOTES PATIENT IN BED AWAKE A/OX4,ABLE TO VERBALIZE NEEDS.TOLERATING WELL ROOM AIR,NO SIGN SOB/DISTRESS NOTED,NO COMPLAIN OF PAIN/DISCOMFORT AT TIME, LEFT AC IV ACCESS #20G INTACT, INTACT, PATENT AND FLUSHING WELL. SAFETY PRECAUTIONS MAINTAINED, BED LOCKED AND ON LOWEST POSITION, CALL LIGHT WITHIN REACH. WILL INDORSE TO NEXT SHIFT FOR CONTINUITY OF CARE.
--- NOTE | 2022-04-04 19:45 | NUR ---
RN OPENING NOTES RECEIVED PT IN BED, AWAKE, WATCHING TV. AOx4, ABLE TO MAKE NEEDS KNOWN. ON RA AND TOLERATING WELL. NO SOB NOTED. NO S/SX OF RESPIRATORY DISTRESS NOTED. TELE MONITOR DETECTS SINUS RHYTHM WITH AV BLOCK. IV ACCESS IN LAC #20 G. IV IS INTACT, PATENT, AND FLUSHING WELL. SAFETY PRECAUTIONS IN PLACE: BED IN LOWEST, LOCKED POSITION, SIDERAILS UPx2, AND BRAKES ON. TABLE AND CALL LIGHT WITHIN REACH. ALL NEEDS MET AT THIS TIME.
[2022-04-04 20:00] VITALS: BP_SYST 147; BP_SYST 158; BP_DIAS 73; BP_DIAS 82
[2022-04-04 23:32] LABS: HEMOGLOBIN 8.3 g/dL (13.5-17.5)
[2022-04-05] VITALS: BP 163/84
[2022-04-05] MEDS: ALBUTEROL FS 2.5 MG/3 ML VIAL.NEB NEB SCH ×4 (02:17→20:24)
[2022-04-05 04:00] VITALS: BP 155/77
[2022-04-05 05:48] LABS: BASOPHILS # (AUTO) 0.1 K/uL (0.0-0.2); BASOPHILS % (AUTO) 1.9 % (0.0-2.0); EOSINOPHILS % (AUTO) 3.4 % (0.0-6.0); HEMATOCRIT 29 % (39-51); HEMOGLOBIN 8.5 g/dL (13.5-17.5); LYMPHOCYTES # (AUTO) 1.4 K/uL (0.8-4.8); LYMPHOCYTES % (AUTO) 21.1 % (20.0-44.0); MEAN CORPUSCULAR HGB CONC 29 g/dl (31.0-36.0); MEAN CORPUSCULAR VOLUME 67 fL (80-96); MONOCYTES # (AUTO) 0.8 K/uL (0.1-1.30); MONOCYTES % (AUTO) 12.8 % (2.0-12.0); NEUTROPHILS % (AUTO) 60.8 % (43.0-81.0); PLATELET COUNT (AUTO) 259 K/uL (150-450); RED BLOOD CELL COUNT(AUTO) 4.32 MIL/uL (4.5-6.0); WHITE BLOOD COUNT (AUTO) 6.6 K/uL (4.3-11.0)
[2022-04-05 06:01] LABS: CALCIUM, SERUM 8.5 mg/dL (8.5-10.1); CARBON DIOXIDE 23 mmol/L (21-32); CHLORIDE 109 mmol/L (98-107); CREATININE 1.1 mg/dL (0.6-1.3); GLUCOSE 96 mg/dL (74-106); MAGNESIUM 2.1 mg/dL (1.8-2.4); PHOSPHORUS 3.2 mg/dL (2.5-4.9); POTASSIUM 3.6 mmol/L (3.5-5.1); SODIUM SERUM 141 mmol/L (136-145); UREA NITROGEN, BLOOD 8 mg/dL (7-18)
[2022-04-05] MEDS: METOPROLOL TARTRATE 50 MG TABLET PO SCH ×3 (06:09→17:21)
--- NOTE | 2022-04-05 06:57 | NUR ---
RN CLOSING NOTES PT IN BED, AWAKE, WATCHING TV. AOx4, ABLE TO MAKE NEEDS KNOWN. ON RA AND TOLERATING WELL. NO SOB NOTED. NO S/SX OF RESPIRATORY DISTRESS NOTED. TELE MONITOR DETECTS SINUS RHYTHM WITH AV BLOCK. IV ACCESS IN LAC #20 G. IV IS INTACT, PATENT, AND FLUSHING WELL. ALL ORDERS CARRIED OUT. ALL NEEDS MET. PT KEPT CLEAN AND DRY. SAFETY PRECAUTIONS IN PLACE: BED IN LOWEST, LOCKED POSITION, SIDERAILS UPx2, AND BRAKES ON. TABLE AND CALL LIGHT WITHIN REACH. WILL ENDORSE TO ONCOMING SHIFT FOR NELLY.
[2022-04-05] MEDS: BUDESONIDE RESPULE INH 0.5 MG/2 ML AMPUL.NEB NEB SCH ×2 (07:42→16:32)
--- NOTE | 2022-04-05 07:50 | NUR ---
CHANNEL WORKER OPENING NOTE RECEIVED PATIENT STANDING UP IN ROOM, AWAKE, A/O X4, ABLE TO VERBALIZE NEEDS. USING URINAL TO VOID. NO SHORTNESS OF BREATH AND NO DIFFICULTY BREATHING, WITHOUT ANY DISTRESS. PATIENT DENIES CHEST PAIN AT THIS TIME. ON TELE MONITOR READING SINUS BRADYCARDIA AT 47 BPM. VS STABLE AT THIS TIME. ALL FOUR EXTREMITIES ARE WARM TO TOUCH WITH POSITIVE PULSES. DENIES DIZZINESS. LEFT ANTECUBITAL IV ACCESS #20G INTACT AND PATENT. WILL CONTINUE PER MD PLAN OF CARE.
[2022-04-05 08:00] VITALS: BP_SYST 156; BP_SYST 174; BP_DIAS 72; BP_DIAS 76
[2022-04-05] MEDS: PANTOPRAZOLE 40 MG VIAL IV SCH ×2 (09:13→18:25)
[2022-04-05] MEDS: ASPIRIN 81 MG TAB.CHEW PO SCH (09:13)
[2022-04-05] MEDS: VALSARTAN 80 MG TABLET PO SCH (09:14)
[2022-04-05] MEDS: ATORVASTATIN 40 MG TABLET PO SCH (09:14)
[2022-04-05] MEDS: AMLODIPINE BESYLATE 5 MG TABLET PO SCH (09:15)
[2022-04-05 09:34] LABS: ALBUMIN 3.3 g/dL (3.4-5.0); BILIRUBIN,DIRECT 0.3 mg/dL (0.0-0.2); BILIRUBIN,TOTAL 1.1 mg/dL (0.2-1.0); TOTAL PROTEIN, SERUM 6.7 g/dL (6.4-8.2)
[2022-04-05 12:00] VITALS: BP 156/72
[2022-04-05] MEDS: SOD FERRIC GLUC 125 MG in IV NS 0.9% 100 ML IV SCH (14:02)
[2022-04-05 16:00] VITALS: BP 150/70
[2022-04-05] MEDS ORDERED: PEG 3350/NA SULF,BICARB,CL/KCL 4,000 ML BOTTLE PO ONE (18:30)
--- NOTE | 2022-04-05 19:30 | NUR ---
RN OPENING NOTES RECEIVED PT IN BED, AWAKE, WATCHING TV. AOx4, ABLE TO MAKE NEEDS KNOWN. ON RA AND TOLERATING WELL. NO SOB NOTED. NO S/SX OF RESPIRATORY DISTRESS NOTED. TELE MONITOR DETECTS SINUS RHYTHM WITH AV BLOCK. IV ACCESS IN RFA #22G. IV IS INTACT, PATENT, AND FLUSHING WELL. SAFETY PRECAUTIONS IN PLACE: BED IN LOWEST, LOCKED POSITION, SIDERAILS UPx2, AND BRAKES ON. TABLE AND CALL LIGHT WITHIN REACH. ALL NEEDS MET AT THIS TIME.
[2022-04-05 20:00] VITALS: BP 139/58
[2022-04-05 23:37] LABS: HEMOGLOBIN 8.2 g/dL (13.5-17.5)
[2022-04-06] VITALS: BP 126/63
[2022-04-06] MEDS: METOPROLOL TARTRATE 50 MG TABLET PO SCH ×4 (01:17→17:26)
[2022-04-06] MEDS: ALBUTEROL FS 2.5 MG/3 ML VIAL.NEB NEB SCH ×4 (01:39→20:38)
--- NOTE | 2022-04-06 02:10 | NUR ---
RN NOTES ASSESSED PATIENT'S CONSUMPTION OF GOLYTELY: CONSUMED LESS THAN HALF AND PATIENT REPORTS NO BOWEL MOVEMENTS. CHARGE NURSE, JARAD, MADE AWARE.
[2022-04-06 04:00] VITALS: BP 110/49
[2022-04-06 05:57] LABS: BASOPHILS # (AUTO) 0.1 K/uL (0.0-0.2); BASOPHILS % (AUTO) 0.6 % (0.0-2.0); HEMATOCRIT 28 % (39-51); HEMOGLOBIN 8.2 g/dL (13.5-17.5); LYMPHOCYTES # (AUTO) 0.5 K/uL (0.8-4.8); LYMPHOCYTES % (AUTO) 3.9 % (20.0-44.0); MEAN CORPUSCULAR HGB CONC 29 g/dl (31.0-36.0); MEAN CORPUSCULAR VOLUME 69 fL (80-96); MONOCYTES # (AUTO) 0.5 K/uL (0.1-1.30); NEUTROPHILS # (AUTO) 12.4 K/uL (1.8-8.9); NEUTROPHILS % (AUTO) 91.5 % (43.0-81.0); PLATELET COUNT (AUTO) 227 K/uL (150-450); WHITE BLOOD COUNT (AUTO) 13.5 K/uL (4.3-11.0)
--- NOTE | 2022-04-06 06:02 | NUR ---
RN NOTES PATIENT HAS FINISHED ABOUT 2/3 OF THE GOLYTELY. CONFIRMS HE HAS HAD A BIG BOWEL MOVEMENT.
[2022-04-06 06:05] LABS: ALANINE AMINOTRANSFERASE 7 U/L (12-78); ALBUMIN 3.2 g/dL (3.4-5.0); ALKALINE PHOSPHATASE 80 U/L (46-116); ASPARTATE AMINOTRANSFERASE 13 U/L (15-37); BILIRUBIN,DIRECT 0.4 mg/dL (0.0-0.2); BILIRUBIN,TOTAL 1.4 mg/dL (0.2-1.0); CALCIUM, SERUM 8.4 mg/dL (8.5-10.1); CARBON DIOXIDE 23 mmol/L (21-32); CHLORIDE 106 mmol/L (98-107); CREATININE 1.4 mg/dL (0.6-1.3); GLUCOSE 103 mg/dL (74-106); PHOSPHORUS 2.8 mg/dL (2.5-4.9); POTASSIUM 4.1 mmol/L (3.5-5.1); SODIUM SERUM 137 mmol/L (136-145); TOTAL PROTEIN, SERUM 6.6 g/dL (6.4-8.2); UREA NITROGEN, BLOOD 13 mg/dL (7-18)
--- NOTE | 2022-04-06 06:46 | NUR ---
RN CLOSING NOTES PT IN BED, ASLEEP, AWAKENS TO VERBAL STIMULI. AOx4, ABLE TO MAKE NEEDS KNOWN. ON RA AND TOLERATING WELL. NO SOB NOTED. NO S/SX OF RESPIRATORY DISTRESS NOTED. TELE MONITOR DETECTS SINUS RHYTHM WITH AV BLOCK. IV ACCESS IN RFA #22G. IV IS INTACT, PATENT, AND FLUSHING WELL. ALL ORDERS CARRIED OUT. ALL NEEDS MET. PT KEPT CLEAN AND DRY. SAFETY PRECAUTIONS IN PLACE: BED IN LOWEST, LOCKED POSITION, SIDERAILS UPx2, AND BRAKES ON. TABLE AND CALL LIGHT WITHIN REACH. WILL ENDORSE TO ONCOMING SHIFT FOR NELLY.
--- NOTE | 2022-04-06 07:34 | NUR ---
SHERIFFS OPENING NOTES RECEIVED PATIENT ON BED AWAKE AND VERBALLY RESPONSIVE , ROOM AIR AND TOLERATED WELL , NO SOB OR DISTRESS NOTED , NO C/O OF PAIN AND DISCOMFORT , IV ACCESS ON LFA #22 G SL , ON CLEAR LIQUID DIET , NO S/S OF BLEEDING NOTED , SAFETY MEASURES PROVIDED , SIDE RAILS UP X2 , CALL LIGHT WITHIN REACH AND WILL CONTINUE TO MONITOR FOR ANY CHANGES
[2022-04-06] MEDS: BUDESONIDE RESPULE INH 0.5 MG/2 ML AMPUL.NEB NEB SCH ×2 (07:55→13:51)
[2022-04-06 08:00] VITALS: BP 109/50
[2022-04-06] MEDS: ASPIRIN 81 MG TAB.CHEW PO SCH (08:14)
[2022-04-06] MEDS: PANTOPRAZOLE 40 MG VIAL IV SCH ×2 (08:15→17:26)
[2022-04-06 08:16] LABS: LYMPHOCYTES % (MANUAL) 5 % (16-48); MONOCYTES % (MANUAL) 1 % (0-11.0); NEUTROPHILS % (MANUAL) 94 (42-76)
[2022-04-06] MEDS: AMLODIPINE BESYLATE 5 MG TABLET PO SCH (08:17)
[2022-04-06] MEDS: ATORVASTATIN 40 MG TABLET PO SCH (08:18)
[2022-04-06] MEDS: VALSARTAN 80 MG TABLET PO SCH (08:18)
[2022-04-06] MEDS: IV NS 0.9% 1,000 ML IV PRN (13:00)
[2022-04-06] MEDS: SOD FERRIC GLUC 125 MG in IV NS 0.9% 100 ML IV SCH (14:06)
[2022-04-06 15:26] LABS: BILIRUBIN,URINE NEGATIVE (NEGATIVE); COLOR,URINE YELLOW (YELLOW); LEUKOCYTE ESTERASE ,URINE 2+ (NEGATIVE); NITRITE, URINE NEGATIVE (NEGATIVE); PROTEIN,URINE NEGATIVE (NEGATIVE); UGLUCOSE NEGATIVE (NEGATIVE); UROBILINOGEN,URINE >=8.0 EU/dL (0.2)
[2022-04-06 15:48] LABS: BACTERIA,URINE 2+ /HPF (None Seen); SQUAMOUS EPITHELIAL CELL,UR 0-2 /HPF (None Seen)
[2022-04-06 16:00] VITALS: BP 114/53
--- NOTE | 2022-04-06 18:46 | NUR ---
CASSANDRA CONSULTANT CLOSING NOTES PATIENT ON BED AWAKE AND VERBALLY RESPONSIVE , A/O X 4 ROOM AIR AND TOLERATED WELL , NO SOB OR DISTRESS NOTED , NO C/O OF PAIN AND DISCOMFORT , IV ACCESS ON LFA #22 G WITH NS AT 75 ML /HOUR . BM X 2 BUT WATERY , ON CLEAR LIQUID DIET , ALL DUE MEDS ORDERED , NO S/S OF BLEEDING NOTED , SAFETY MEASURES PROVIDED , SIDE RAILS UP X2 , CALL LIGHT WITHIN REACH AND COLLECTED URINE FOR U/A AND CULTURE AND RESULT STILL PENDING , ENDORSED TO NEXT SHIFT
--- NOTE | 2022-04-06 19:00 | NUR ---
MS STAR INITIAL NOTES RECEIVED REPORT FROM AM NURSE AND SEEN PT IN BED AWAKE AND ALERT WITH IVF OF NS AT 75ML/HR INFUSING ON HIS RIGHT FOREARM PATENT AND INTACT. PT ON CLEAR LIQUIDS DIET NO ASPIRATION NOTED AT THIS TIME. HE'S ON ROOM AIR NO SIGNS OF ANY DISTRESS OR DISCOMFORT NOTED. ALL SAFETY MEASURES IMPLEMENTED. AWARE WHERE HE AT. RE-ORIENT HIM HOW TO USED THE ALL LIGHT SYSTEM AND PLACE ON REACH. KEPT HIM WARM AND COMFORTABLE AT ALL TIMES. WILL CONTINUE MONITORING.
[2022-04-06] MEDS: CEFTRIAXONE 1 G in IV D5W 50 ML IV SCH (21:00)
[2022-04-06] MEDS ORDERED: CEFTRIAXONE 1 G VIAL ONE (23:46)
[2022-04-07] MEDS: METOPROLOL TARTRATE 50 MG TABLET PO SCH ×5 (00:11→23:59)
[2022-04-07] MEDS: ALBUTEROL FS 2.5 MG/3 ML VIAL.NEB NEB SCH ×4 (01:57→20:13)
[2022-04-07] MEDS: IV NS 0.9% 1,000 ML IV PRN (06:16)
[2022-04-07 06:36] LABS: BASOPHILS # (AUTO) 0.1 K/uL (0.0-0.2); BASOPHILS % (AUTO) 0.8 % (0.0-2.0); EOSINOPHILS % (AUTO) 0.3 % (0.0-6.0); HEMATOCRIT 28 % (39-51); HEMOGLOBIN 8.1 g/dL (13.5-17.5); LYMPHOCYTES # (AUTO) 1.1 K/uL (0.8-4.8); LYMPHOCYTES % (AUTO) 17.3 % (20.0-44.0); MEAN CORPUSCULAR HGB CONC 29 g/dl (31.0-36.0); MEAN CORPUSCULAR VOLUME 70 fL (80-96); NEUTROPHILS % (AUTO) 65.6 % (43.0-81.0); PLATELET COUNT (AUTO) 210 K/uL (150-450); RED BLOOD CELL COUNT(AUTO) 3.98 MIL/uL (4.5-6.0); WHITE BLOOD COUNT (AUTO) 6.1 K/uL (4.3-11.0)
[2022-04-07 06:48] LABS: CALCIUM, SERUM 8.3 mg/dL (8.5-10.1); CARBON DIOXIDE 24 mmol/L (21-32); CHLORIDE 104 mmol/L (98-107); CREATININE 1.4 mg/dL (0.6-1.3); GLUCOSE 101 mg/dL (74-106); PHOSPHORUS 3.2 mg/dL (2.5-4.9); POTASSIUM 3.7 mmol/L (3.5-5.1); SODIUM SERUM 136 mmol/L (136-145); UREA NITROGEN, BLOOD 11 mg/dL (7-18)
--- NOTE | 2022-04-07 07:12 | NUR ---
ESCORT CAR DRIVER OPENING NOTES RECEIVED PATIENT IN BED AWAKE AND VERBALLY RESPONSIVE , ROOM AIR AND TOLERATED WELL , NO SOB OR DISTRESS NOTED , NO C/O OF PAIN AND DISCOMFORT , IV ACCESS ON RFA #22 G SL , ON CLEAR LIQUID DIET , NO S/S OF BLEEDING NOTED , SAFETY MEASURES PROVIDED , SIDE RAILS UP X2 , CALL LIGHT WITHIN REACH AND WILL CONTINUE TO MONITOR FOR ANY CHANGES
--- NOTE | 2022-04-07 07:43 | NUR ---
ms craniologist closing notes pt awake and alert watching TV at this time. Stable throughout the night. all due meds given and all needs met. kept him warm and comfortable at all times. IVF still infusing. on his right forearm patent and intact. kept him warm and comfortable at all times. Endorse to am nurse for continuity of care. place call light at reach.
[2022-04-07 08:00] VITALS: BP 132/50
[2022-04-07] MEDS: BUDESONIDE RESPULE INH 0.5 MG/2 ML AMPUL.NEB NEB SCH ×2 (08:15→16:26)
[2022-04-07] MEDS: PANTOPRAZOLE 40 MG VIAL IV SCH (08:30)
[2022-04-07] MEDS: ASPIRIN 81 MG TAB.CHEW PO SCH (08:30)
[2022-04-07] MEDS: AMLODIPINE BESYLATE 5 MG TABLET PO SCH (08:31)
[2022-04-07] MEDS: VALSARTAN 80 MG TABLET PO SCH (08:32)
[2022-04-07] MEDS: ATORVASTATIN 40 MG TABLET PO SCH (08:33)
[2022-04-07 09:02] LABS: BAND % (MANUAL) 2 % (0.0-5.0); LYMPHOCYTES % (MANUAL) 22 % (16-48); MONOCYTES % (MANUAL) 14 % (0-11.0); NEUTROPHILS % (MANUAL) 62 (42-76)
[2022-04-07 10:03] LABS: ALBUMIN 3.1 g/dL (3.4-5.0); BILIRUBIN,DIRECT 0.4 mg/dL (0.0-0.2); BILIRUBIN,TOTAL 1.1 mg/dL (0.2-1.0); TOTAL PROTEIN, SERUM 6.4 g/dL (6.4-8.2)
[2022-04-07] MEDS: SOD FERRIC GLUC 125 MG in IV NS 0.9% 100 ML IV SCH (14:36)
[2022-04-07 16:00] VITALS: BP 121/54
[2022-04-07] MEDS: PANTOPRAZOLE 40 MG/PACK PACK PO SCH (16:09)
--- NOTE | 2022-04-07 18:55 | NUR ---
PRICING SUPERVISOR CLOSING NOTES PATIENT IN BED AWAKE AND VERBALLY RESPONSIVE , A/O X 4 ROOM AIR AND TOLERATED WELL , NO SOB OR DISTRESS NOTED , NO C/O OF PAIN AND DISCOMFORT , IV ACCESS ON RFA #22 G WITH NS AT 75 ML /HOUR . ON NPO AWAITING DEVELOPMENTAL WRITING INSTRUCTOR BY SURGERY DEPT, ALL CONSENT FORMS SIGNED , SAFETY MEASURES IN PLACE , SIDE RAILS UP X2 , CALL LIGHT WITHIN REACH , WILL ENDORSED TO VARNISH MELTER RN FOR NELLY
--- NOTE | 2022-04-07 19:41 | NUR ---
RN OPENING NOTE; PT ON THE OR FOR EGD.
[2022-04-07 20:00] VITALS: BP 111/42
--- NOTE | 2022-04-07 20:20 | NUR ---
RN NOTE; PT CAME BACK FROM OR,AAOX4 STABLE,NO SIGN SOB/DISTRESS NOTED,V/S TAKEN WITHIN NORMAL LIMITS IN RECORDED,NO COMPLAIN OF PAIN/DISCOMFORT AT THIS TIME,WILL CONTINUE TO MONITOR,
[2022-04-07] MEDS: CEFTRIAXONE 1 G in IV D5W 50 ML IV SCH (20:51)
[2022-04-08] MEDS: ALBUTEROL FS 2.5 MG/3 ML VIAL.NEB NEB SCH ×4 (02:20→20:25)
[2022-04-08] MEDS: METOPROLOL TARTRATE 50 MG TABLET PO SCH ×4 (05:15→23:52)
[2022-04-08] MEDS: IV NS 0.9% 1,000 ML IV PRN (06:18)
--- NOTE | 2022-04-08 06:33 | NUR ---
RN CLOSING NOTE; PATIENT I BED AAOX4 ABLE TO MAKE NEEDS KNOWN,MARCIO WELL ON RM AIR SATTING 98.4%,MARCIO WELL ON RM AIR,NO SIGN SOB/DISTRESS NOTED,NO COMPLAINED OF PAIN/DISCOMFORT DURING SHIFT,DUE MEDS GIVEN ORDER,ALL NEEDS ATTENDED,PT WAS OFFERRED FOOD STATED NOT HUNGRY,IV ACCESS ON RAC 22G WITH NS 75ML/HR INFUSING WELL, SAFETY MEASURED IN PLACE,CALL LIGHT WITHIN REACH,WILL ENDORSED TO NEXt SHIFT.
[2022-04-08 06:50] LABS: CARBON DIOXIDE 21 mmol/L (21-32); CHLORIDE 106 mmol/L (98-107); CREATININE 1.1 mg/dL (0.6-1.3); GLUCOSE 104 mg/dL (74-106); PHOSPHORUS 2.9 mg/dL (2.5-4.9); POTASSIUM 3.5 mmol/L (3.5-5.1); SODIUM SERUM 136 mmol/L (136-145); UREA NITROGEN, BLOOD 10 mg/dL (7-18)
[2022-04-08 06:58] LABS: BASOPHILS % (AUTO) 0.3 % (0.0-2.0); EOSINOPHILS % (AUTO) 0.4 % (0.0-6.0); HEMATOCRIT 29 % (39-51); HEMOGLOBIN 8.6 g/dL (13.5-17.5); LYMPHOCYTES # (AUTO) 0.9 K/uL (0.8-4.8); LYMPHOCYTES % (AUTO) 9.7 % (20.0-44.0); MEAN CORPUSCULAR HGB CONC 30 g/dl (31.0-36.0); MEAN CORPUSCULAR VOLUME 70 fL (80-96); MONOCYTES # (AUTO) 1.2 K/uL (0.1-1.30); MONOCYTES % (AUTO) 12.4 % (2.0-12.0); NEUTROPHILS # (AUTO) 7.3 K/uL (1.8-8.9); NEUTROPHILS % (AUTO) 77.2 % (43.0-81.0); PLATELET COUNT (AUTO) 182 K/uL (150-450); RED BLOOD CELL COUNT(AUTO) 4.07 MIL/uL (4.5-6.0); WHITE BLOOD COUNT (AUTO) 9.5 K/uL (4.3-11.0)
--- NOTE | 2022-04-08 07:12 | NUR ---
MS RN OPENING NOTES RECEIVED PATIENT IN BED AWAKE WATCHING TV. A/O X4. ABLE TO MAKE NEEDS KNOWN, DENIES PAIN OR ANY DISCOMFORTS AT THIS TIME. ON ROOM AIR, BREATHING EVEN AND UNLABORED, NO SOB NOTED. IV ACCESS ON RIGHT HAND G#24 INTACT WITH IVF OF NS @ 75ML/HR INFUSING , NO S/S OF INFILTRATION AT SITE NOTED. SAFETY MEASURES IN PLACE: BED IN LOWEST LOCKED POSITION, SR-UP X2 AND CALL LIGHT W/I REACH OF PT. WILL CONTINUE TO MONITOR PT ACCORDINGLY.
[2022-04-08 08:00] VITALS: BP 152/66
[2022-04-08] MEDS: PANTOPRAZOLE 40 MG/PACK PACK PO SCH ×2 (08:25→17:03)
[2022-04-08] MEDS: ASPIRIN 81 MG TAB.CHEW PO SCH (08:25)
[2022-04-08] MEDS: AMLODIPINE BESYLATE 5 MG TABLET PO SCH (08:26)
[2022-04-08] MEDS: VALSARTAN 80 MG TABLET PO SCH (08:26)
[2022-04-08] MEDS: ATORVASTATIN 40 MG TABLET PO SCH (08:27)
[2022-04-08] MEDS: BUDESONIDE RESPULE INH 0.5 MG/2 ML AMPUL.NEB NEB SCH ×2 (08:49→16:02)
[2022-04-08 10:24] LABS: EOSINOPHILS % (MANUAL) 1 % (0-4); LYMPHOCYTES % (MANUAL) 8 % (16-48); MONOCYTES % (MANUAL) 11 % (0-11.0); NEUTROPHILS % (MANUAL) 80 (42-76)
[2022-04-08 16:00] VITALS: BP 130/60
--- NOTE | 2022-04-08 18:36 | NUR ---
MS RN CLOSING NOTES PT RESTING IN BED, WATCHING TV AT THIS TIME. A/O X4. ABLE TO MAKE NEEDS KNOWN, DID NOT C/O PAIN/DISCOMFORT WITHIN THE SHIFT. ON ROOM AIR, NO SOB NOTED. IV ACCESS ON RIGHT HAND #24G INTACT WITH IVF OF NS @ 75ML/HR INFUSING WELL. ALL NEEDS/CARE ATTENDED. SAFETY MEASURES IN PLACE: BED IN LOWEST LOCKED POSITION, SR-UP X2 AND CALL LIGHT W/I REACH OF PT. WILL ENDORSE NELLY TO HARNESS BUILDER NURSE.
--- NOTE | 2022-04-08 19:50 | NUR ---
MS RN OPENING NOTE RECEIVED PATIENT IN BED AWAKE. A/O X4, ABLE TO MAKE NEEDS KNOWN. DENIES PAIN OR ANY DISCOMFORTS AT THIS TIME. ON ROOM AIR, BREATHING EVEN AND UNLABORED, NO SOB NOTED. IV ACCESS TO RIGHT HAND G#24 INTACT WITH NS INFUSING AT 75ML/HR. NO S/S OF INFILTRATION AT IV SITE NOTED. SAFETY MEASURES IN PLACE: BED IN LOWEST LOCKED POSITION, SR UP X2, AND CALL LIGHT WITHIN REACH OF PT. WILL CONTINUE TO MONITOR PT ACCORDINGLY.
[2022-04-08 20:00] VITALS: BP 125/53
[2022-04-08] MEDS: CEFTRIAXONE 1 G in IV D5W 50 ML IV SCH (21:45)
[2022-04-09] MEDS: ALBUTEROL FS 2.5 MG/3 ML VIAL.NEB NEB SCH ×3 (01:22→13:30)
[2022-04-09 06:19] LABS: CALCIUM, SERUM 7.9 mg/dL (8.5-10.1); CREATININE 1.1 mg/dL (0.6-1.3); PHOSPHORUS 2.8 mg/dL (2.5-4.9); POTASSIUM 3.6 mmol/L (3.5-5.1)
[2022-04-09] MEDS: METOPROLOL TARTRATE 50 MG TABLET PO SCH ×2 (06:32→11:15)
[2022-04-09 06:36] LABS: BASOPHILS % (AUTO) 0.5 % (0.0-2.0); EOSINOPHILS % (AUTO) 0.9 % (0.0-6.0); HEMATOCRIT 27 % (39-51); LYMPHOCYTES # (AUTO) 1.6 K/uL (0.8-4.8); LYMPHOCYTES % (AUTO) 19.5 % (20.0-44.0); MEAN CORPUSCULAR HGB CONC 30 g/dl (31.0-36.0); MEAN CORPUSCULAR VOLUME 71 fL (80-96); MONOCYTES % (AUTO) 11.9 % (2.0-12.0); NEUTROPHILS # (AUTO) 5.6 K/uL (1.8-8.9); NEUTROPHILS % (AUTO) 67.2 % (43.0-81.0); PLATELET COUNT (AUTO) 178 K/uL (150-450); RED BLOOD CELL COUNT(AUTO) 3.79 MIL/uL (4.5-6.0); WHITE BLOOD COUNT (AUTO) 8.3 K/uL (4.3-11.0)
--- NOTE | 2022-04-09 07:00 | NUR ---
MS RN CLOSING NOTE PT RESTING IN BED,AWAKE. PT A/O X4. ABLE TO MAKE NEEDS KNOWN, DID NOT C/O PAIN/DISCOMFORT THROUGHOUT SHIFT. ON ROOM AIR, NO SOB NOTED. IV ACCESS ON RIGHT HAND #24G INTACT WITH IVF OF NS @ 75ML/HR INFUSING WELL. ALL NEEDS/CARE ATTENDED. SAFETY MEASURES IN PLACE: BED IN LOWEST LOCKED POSITION, SR-UP X2 AND CALL LIGHT W/I REACH OF PT. WILL ENDORSE PT TO MORNING SHIFT NURSE FOR NELLY.
[2022-04-09] MEDS: BUDESONIDE RESPULE INH 0.5 MG/2 ML AMPUL.NEB NEB SCH (07:05)
--- NOTE | 2022-04-09 07:11 | NUR ---
MS RN OPENING NOTES RECEIVED PATIENT AWAKE IN ROOM, A/Ox4, ABLE TO MAKE NEEDS KNOWN. ON ROOM AIR. NO S/S OF RESPIRATORY DISTRESS. IV ACCESS R HAND #24G RUNNING NS@75 ML/HR. INTACT AND PATENT. AMBULATORY W/ ASSIST, CONTINENT USES BATHROOM. SAFETY MEASURES IN PLACE: BED LOCKED AND IN LOWEST POSITION, SIDE RAILS UPx2, HOB ELEVATED, CALL LIGHT WITHIN REACH. WILL CONTINUE TO MONITOR.
[2022-04-09 08:00] VITALS: BP 137/57
[2022-04-09] MEDS: ATORVASTATIN 40 MG TABLET PO SCH (08:40)
[2022-04-09] MEDS: ASPIRIN 81 MG TAB.CHEW PO SCH (08:41)
[2022-04-09] MEDS: VALSARTAN 80 MG TABLET PO SCH (08:41)
[2022-04-09] MEDS: PANTOPRAZOLE 40 MG/PACK PACK PO SCH (08:41)
[2022-04-09] MEDS: AMLODIPINE BESYLATE 5 MG TABLET PO SCH (08:41)
[2022-04-09] MEDS ORDERED: METO50TA16 PO (09:22)
[2022-04-09] MEDS ORDERED: PANT40SU2 PO (09:22)
[2022-04-09] MEDS ORDERED: AMLO-212 PO (09:22)
[2022-04-09] MEDS ORDERED: ASPI-1169 PO (09:22)
[2022-04-09 11:15] VITALS: BP 137/57
--- NOTE | 2022-04-09 15:51 | NUR ---
CLINICAL ACCOUNT EXECUTIVE NOTES PATIENT D/C HOME. STABLE A/Ox4, ABLE TO MAKE NEEDS KNOWN. STABLE ON ROOM AIR. NO S/S OF RESPIRATORY DISTRESS. JIMMY TEACHINGS AND DISCHARGE INSTRUCTIONS GIVEN TO PATIENT AND PATIENT VERBALIZED UNDERSTANDING. ALL FORMS SIGNED AND FILED INTO CHART. IV ACCESS REMOVED, PRESSURE DRESSING APPLIED. ID BAND REMOVED. ALL BELONGINGS WITH PATIENT. PATIENT LEFT UNIT ACCOMPANIED BY RN ELIU AND SON @1513. CHARGE NURSE AND MD AWARE OF DISCHARGE.
== END 2022-04-09 15:15 | disposition home or self-care (01) | DRG 377 ==
LOC: ER 19:59 → TELE 21:49 → MED 04-06 08:28
PROVIDERS: ADMIT Nurse Practitioner Acute Care; ATTEND Student in an Organized Health Care Education/Training Program
PROC: 30233N1 Transfusion of Nonautologous Red Blood Cells into Peripheral Vein, Percutaneous Approach (ICD-10-PCS; principal; 2022-04-02)
PROC: 30233N1 Transfusion of Nonautologous Red Blood Cells into Peripheral Vein, Percutaneous Approach (ICD-10-PCS; 2022-04-02)
PROC: 0DB98ZX Excision of Duodenum, Via Natural or Artificial Opening Endoscopic, Diagnostic (ICD-10-PCS; 2022-04-07)
PROC: 0DJD8ZZ Inspection of Lower Intestinal Tract, Via Natural or Artificial Opening Endoscopic (ICD-10-PCS; 2022-04-07)
DX: K25.4 Chronic or unspecified gastric ulcer with hemorrhage (principal); I21.A1 Myocardial infarction type 2; I50.31 Acute diastolic (congestive) heart failure; N39.0 Urinary tract infection, site not specified; Z20.822 Contact with and (suspected) exposure to COVID-19; K29.71 Gastritis, unspecified, with bleeding; I25.10 Atherosclerotic heart disease of native coronary artery without angina pectoris; I11.0 Hypertensive heart disease with heart failure; D50.9 Iron deficiency anemia, unspecified; I25.2 Old myocardial infarction; K57.30 Diverticulosis of large intestine without perforation or abscess without bleeding; K44.9 Diaphragmatic hernia without obstruction or gangrene; K64.8 Other hemorrhoids; J45.909 Unspecified asthma, uncomplicated; Z79.82 Long term (current) use of aspirin; Z79.51 Long term (current) use of inhaled steroids; Z79.899 Other long term (current) drug therapy; Z87.891 Personal history of nicotine dependence; E78.5 Hyperlipidemia, unspecified; E88.09 Other disorders of plasma-protein metabolism, not elsewhere classified; J43.9 Emphysema, unspecified; K80.20 Calculus of gallbladder without cholecystitis without obstruction; B96.89 Other specified bacterial agents as the cause of diseases classified elsewhere; N28.9 Disorder of kidney and ureter, unspecified; R74.01 Elevation of levels of liver transaminase levels
CPT/HCPCS: 36415; 71045-TC; 75574; 76700-TC; 80048-TC; 80061-TC; 80076-TC; 81001; 82272-TC; 82728-TC; 83540-TC; 83735-TC; 83880; 84100-TC; 84443-TC; 84484-TC; 85025-TC; 85027-TC; 85610-TC; 85730-TC; 86850-TC; 87081-TC; 87086-TC; 88305-TC; 93307-TC; 94761-TC; 94762-TC; 94799-TC; C9113; C9803; G0378; J0696; J1650; J1940; J2704; J2916; J3490; J7030; J7050; J7060; P9016; Q9967